=== PATIENT | female | born 1940 | race Caucasian/White ===

== ENCOUNTER 2024-11-26 00:16 | Observation (INO) | payer MEDICARE, OTHER ==
[2024-11-26 02:05] LABS: #Basophils 0.04 10x3/uL (0.0-0.2); %Basophils 0.8 % (0.0-1.0); %Eosinophils 1.2 % (0.0-10.0); %Lymphocytes 25.6 % (21.0-51.0); %Monocytes 9.6 % (0.0-10.0); %Neutrophils 62.6 % (42.0-75.0); Hematocrit 37.3 % (36.0-47.0); Hemoglobin 12.5 g/dL (12.0-16.0); Mean Corpuscular HGB CONC 33.5 g/dL (32.0-36.0); Mean Corpuscular Hemoglobin 30.3 pg (27.0-31.0); Mean Corpuscular Volume 90.3 fL (78.0-98.0); Mean Platelet Volume 10.1 fL (7.4-10.4); Platelet Count 271 10x3/uL (130-400); RBC Distribution Width 13.1 % (11.5-14.5); Red Blood Cell (RBC) Count 4.13 mill/uL (4.20-5.40)
[2024-11-26 02:20] LABS: ALT (SGPT) 13 U/L (Less than 34); AST (SGOT) 21 U/L (11-34); Albumin 3.9 g/dL (3.1-4.5); Alkaline Phosphatase 67 U/L (40-110); Anion Gap 16 mmol/L (10-20); BUN (Urea Nitrogen) 11 mg/dL (9.8-20.1); Bilirubin, Total 0.5 mg/dL (0.3-1.2); Calc. Creatinine Clearance 0 mL/min (70-130); Calcium 9.3 mg/dL (7.8-10.44); Carbon Dioxide 24 mmol/L (23-31); Chloride 105 mmol/L (98-107); Estimated GFR 86; Glucose 106 mg/dL (83-110); Potassium 3.5 mmol/L (3.5-5.1); Protein, Total 6.9 g/dL (5.8-8.1); Sodium 141 mmol/L (136-145)
[2024-11-26 02:25] LABS: Troponin I 0.042 ng/mL (< 0.028)
[2024-11-26 03:03] LABS: Bacteria/HPF None Seen HPF (None Seen); Bilirubin Negative (Negative); Blood, Urine Negative (Negative); CAUTI Indications for Culture Dysuria,urgency,freq; Clarity Clear (Clear); Glucose, Urine (Dipstick) Normal (Negative); Ketone, Urine Negative (Negative); Leukocyte Negative Leu/uL (Negative); Nitrite Negative (Negative); Protein, Urine (Dipstick) Negative (Neg-Trace); RBC/HPF 0-3 HPF (0-3); Specific Gravity, Urine 1.011 (1.002-1.036); Squamous Epithelial 0-3 HPF (0-3); Urobilinogen Normal mg/dL (Less than 2); WBC/HPF 0-3 HPF (0-3); pH, Urine 7.5 (5.0-9.0)
[2024-11-26 03:06] LABS: Urine Culture Reflex No No
[2024-11-26] MEDS ORDERED: Ondansetron PF 4 MG/2 ML Vial IVP PRN (04:19)
[2024-11-26] MEDS ORDERED: Acetaminophen 650 MG Suppository PR PRN (04:19)
[2024-11-26] MEDS ORDERED: Acetaminophen 325 MG TAB PO PRN (04:19)
[2024-11-26] MEDS ORDERED: Calcium Carbonate 500 MG ChewTAB PO PRN (04:19)
[2024-11-26] MEDS ORDERED: Ondansetron ODT 4 MG TAB PO PRN (04:19)
[2024-11-26 05:14] VITALS: BMI 28.3
[2024-11-26 06:02] LABS: Troponin I 0.026 ng/mL (< 0.028)
[2024-11-26] MEDS ORDERED: Famotidine 20 MG TAB ONE (08:59)
[2024-11-26 09:06] LABS: Troponin I 0.022 ng/mL (< 0.028)
[2024-11-26] MEDS: Famotidine 20 MG TAB PO SCH (09:08)
[2024-11-26] MEDS: Famotidine/PF 20 mg/2ml Vial SLOW IVP SCH (09:09)
[2024-11-26] MEDS ORDERED: hydrALAZINE 20 MG/ML VIAL SLOW IVP PRN (09:26)
[2024-11-26] MEDS ORDERED: Electrolyte Replacement Protocol 1 EACH FS SCH (09:28)
[2024-11-26 10:00] LABS: Magnesium 1.5 mg/dL (1.6-2.6)
[2024-11-26] MEDS ORDERED: Magnesium 2 GM/50 ML(in water) 2 GM in Premix 1 BAG IVPB SCH (12:00)
[2024-11-26 12:48] VITALS: BP 142/69; TEMP 98
[2024-11-26] MEDS ORDERED: Aspirin 81 mg Enteric Coated Tablet ONE (13:41)
[2024-11-26] MEDS: Magnesium Sulfate In Water 4 GM in Premix 1 BAG IVPB SCH (14:00)
[2024-11-26] MEDS: Potassium Chloride 20 MEQ TAB PO SCH (14:00)
[2024-11-26] MEDS: Aspirin 81 mg Enteric Coated Tablet PO SCH (14:00)
[2024-11-26] MEDS ORDERED: Atorvastatin Calcium 40 MG TAB PO SCH (21:00)
[2024-11-27] MEDS ORDERED: Aspirin 81 mg Enteric Coated Tablet PO SCH (09:00)
== END 2024-11-26 18:42 | disposition home or self-care (01) ==
LOC: ERS 00:16 → ERHOLD 04:27
PROVIDERS: ADMIT Student in an Organized Health Care Education/Training Program; ATTEND Internal Medicine
DX: G93.41 Metabolic encephalopathy (principal); I16.0 Hypertensive urgency; I12.9 Hypertensive chronic kidney disease with stage 1 through stage 4 chronic kidney disease, or unspecified chronic kidney disease; N18.2 Chronic kidney disease, stage 2 (mild); I48.92 Unspecified atrial flutter; E87.6 Hypokalemia; E83.42 Hypomagnesemia; F41.9 Anxiety disorder, unspecified; K21.9 Gastro-esophageal reflux disease without esophagitis; G89.4 Chronic pain syndrome; R79.89 Other specified abnormal findings of blood chemistry; Z85.3 Personal history of malignant neoplasm of breast; Z90.710 Acquired absence of both cervix and uterus; Z90.89 Acquired absence of other organs; Z90.49 Acquired absence of other specified parts of digestive tract; Z88.1 Allergy status to other antibiotic agents; Z88.5 Allergy status to narcotic agent; Z88.8 Allergy status to other drugs, medicaments and biological substances; Z88.2 Allergy status to sulfonamides; Z79.1 Long term (current) use of non-steroidal anti-inflammatories (NSAID); Z79.899 Other long term (current) drug therapy
CPT/HCPCS: 70450; 70551; 71045; 81001; 83735; 84484 ×2; 93005; 93306; 96374; 99285; G0378; J3475; 36415; 80053; 84443; 85025